=== PATIENT | male | born 1980 | race Caucasian/White ===

== ENCOUNTER 2018-11-28 00:50 | Emergency (ER) | payer MEDICAID ==
[~2018-11-28] VITALS: Ht 165.1 cm; Wt 71.2 kg
[2018-11-28 01:00] VITALS: Ht 165.1 cm; Wt 71.2 kg
--- NOTE | 2018-11-28 02:10 | ERD ---
ER Documentation Chief Complaint Chief Complaint upper abd pain x 4 hours HPI This is a 38-year-old male who presents here in the emergency department with complaints of right upper abdominal pain for about 4 hours. Vomited multiple times with nonbilious nonbloody emesis. His last bowel movement was today and was normal. Denies headache, head injury, loss of consciousness, dizziness, neck pain, neck stiffness, throat pain, difficulty swallowing, difficulty breathing lying flat, shoulder pain, chest pain, back pain, nausea, vomiting, constipation, diarrhea, urinary symptoms, loss of bowel and bladder control, trauma, injury, falls, difficulty walking due to pain, numbness or tingling sensation, calf pain, recent travel, recent major surgery in the last 3 weeks, calf pain, recent long travel, recent exposure to any illness, recent antibiotic use in the last 3 months, fever, chills, seizures. Past medical history: Surgical history: Right knee surgery. Social: Denies smoking, use of alcoholic beverages, use of illegal drugs. ROS All systems reviewed and are negative except as per history of present illness. Medications Home Meds Active Scripts Ibuprofen* (Motrin*) 800 Mg Tab, 800 MG PO Q6H PRN for PAIN AND OR ELEVATED TEMP, #30 TAB Prov:NIMISHA PEREZ F 11/28/18 Omeprazole* (Omeprazole*) 40 Mg Capsule.dr, 40 MG PO DAILY, #30 CAP Prov:PASILABANNIIMSHA F 11/28/18 Ondansetron Hcl* (Zofran*) 4 Mg Tablet, 4 MG PO Q8H PRN for NAUSEA AND/OR VOMITING, #30 TAB Prov:NIMISHA PEREZ F 11/28/18 Tramadol HCl (Tramadol HCl) 50 Mg Tablet, 50 MG PO Q4 PRN for SEVERE PAIN LEVEL 7-10, #5 TAB Prov:PASNIMISHA RODRIGUEZ F 11/28/18 Allergies Allergies: Uncoded Allergies: NKDA (Allergy, 04/14/11) PMhx/Soc History of Surgery: No Anesthesia Reaction: No Hx Neurological Disorder: No Hx Respiratory Disorders: No Hx Cardiac Disorders: No Hx Psychiatric Problems: No Hx Miscellaneous Medical Probl: No Hx Alcohol Use: No Hx Substance Use: No Hx Tobacco Use: No Smoking Status: Never smoker Physical Exam Vitals Physical Exam Const: No acute distress Head: Atraumatic Eyes: Normal Conjunctiva ENT: Normal External Ears, Nose and Mouth. Neck: Full range of motion. No meningismus. Resp: Clear to auscultation bilaterally Cardio: Regular rate and rhythm, no murmurs Abd: Soft, non tender, non distended. Normal bowel sounds. Has right upper abdominal tenderness to light and to palpation. Examined with female sand caster apprentice, RN. No vesicular lesions. Negative [place] sign (heel jar test). Negative psoas sign. Negative Rovsing sign. Negative psoas sign. No CVA tenderness. Able to jump twice without developing lower abdominal pain. Skin: No petechiae or rashes. Color appears normal for ethnicity. No skin tenting. No signs of severe dehydration. Back: No midline or flank tenderness Ext: No cyanosis, or edema Neur: Awake and alert. No neurological deficits. Psych: Normal Mood and Affect Results 24 hrs Laboratory Tests Test 11/28/18 02:31 11/28/18 03:27 White Blood Count 11.8 10^3/ul Red Blood Count 4.32 10^6/ul Hemoglobin 13.6 g/dl Hematocrit 40.9 % Mean Corpuscular Volume 94.7 fl Mean Corpuscular Hemoglobin 31.5 pg Mean Corpuscular Hemoglobin Concent 33.3 g/dl Red Cell Distribution Width 12.3 % Platelet Count 234 10^3/UL Mean Platelet Volume 10.2 fl Immature Granulocytes % 0.400 % Neutrophils % 88.0 % Lymphocytes % 6.1 % Monocytes % 5.1 % Eosinophils % 0.1 % Basophils % 0.3 % Nucleated Red Blood Cells % 0.0 /100WBC Immature Granulocytes # 0.050 10^3/ul Neutrophils # 10.4 10^3/ul Lymphocytes # 0.7 10^3/ul Monocytes # 0.6 10^3/ul Eosinophils # 0.0 10^3/ul Basophils # 0.0 10^3/ul Nucleated Red Blood Cells # 0.0 10^3/ul Sodium Level 141 mmol/L Potassium Level 3.8 mmol/L Chloride Level 104 mmol/L Carbon Dioxide Level 28 mmol/L Anion Gap 9 Blood Urea Nitrogen 15 mg/dl Creatinine 0.78 mg/dl Est Glomerular Filtrat Rate mL/min > 60 mL/min Glucose Level 143 mg/dl Calcium Level 9.4 mg/dl Total Bilirubin 0.3 mg/dl Direct Bilirubin 0.00 mg/dl Indirect Bilirubin 0.3 mg/dl Aspartate Amino Transf (AST/SGOT) 33 IU/L Alanine Aminotransferase (ALT/SGPT) 42 IU/L Alkaline Phosphatase 65 IU/L Total Protein 8.2 g/dl Albumin 4.8 g/dl Globulin 3.40 g/dl Albumin/Globulin Ratio 1.41 Amylase Level 78 U/L Lipase 135 U/L Urine Color YELLOW Urine Clarity CLOUDY Urine pH 7.0 Urine Specific [place] 1.016 Urine Ketones NEGATIVE mg/dL Urine Nitrite NEGATIVE mg/dL Urine Bilirubin NEGATIVE mg/dL Urine Urobilinogen NEGATIVE mg/dL Urine Leukocyte Esterase NEGATIVE Shaan/ul Urine Microscopic RBC 2 /HPF Urine Microscopic WBC 1 /HPF Urine Amorphous Crystals FEW /HPF Urine Mucus FEW /HPF Urine Hemoglobin NEGATIVE mg/dL Urine Glucose NEGATIVE mg/dL Urine Total Protein NEGATIVE mg/dl Current Medications Medications Dose Sig/[place] Start Time Status Last (Trade) Ordered Route PRN Stop Time Admin Dose Reason Admin Ondansetron 4 mg ONCE STAT 11/28/18 DC 11/28/18 HCl (Zofran IV 02:11 11/28/18 02:37 Inj) 02:15 Sodium 1,000 ml @ Q1H ONCE 11/28/18 DC 11/28/18 Chloride 1,000 mls/hr IV 02:30 11/28/18 02:37 03:29 Morphine 4 mg ONCE STAT 11/28/18 DC 11/28/18 Sulfate IV 02:11 11/28/18 02:37 (morphine) 02:15 1 mg ONCE STAT 11/28/18 DC 11/28/18 Hydromorphone IV 03:15 11/28/18 03:24 HCl 03:16 (Dilaudid) Procedures/MDM Diagnostic tests: Urinalysis: Reviewed. Blood works: Reviewed. Ultrasound of the gallbladder: Cholelithiasis with positive sonographic Nichole's sign. There is no gallbladder wall thickening or pericholecystic fluid. Fatty infiltration of the liver. Pancreas obscured by overlying bowel gas. Treatment: Saline lock. Normal saline IV bolus. Morphine IV. Zofran IV. Re-evaluation: Denies abdominal pain. Negative Nichole sign. Negative [place] sign (heel jar test). Negative psoas sign. Negative Rovsing sign. No CVA tenderness. Able to jump 10 times without developing lower abdominal pain. Stated that she feels much better at this time and that she is ready to go home. Also stated that she is comfortable to go home. Differential diagnosis I have low suspicion for acute cholecystitis, pancreatitis, diverticulitis, diverticulitis with abscess, bowel obstruction, appendicitis, ruptured appendicitis, obstructing kidney stones, kidney stones, pyelonephritis, septic stone, sepsis. Final diagnosis: Gallstones. Abdominal pain. Prescription: Zofran. Omeprazole. Pepcid. Follow-up with PCP in the next 24-48 hours. Come back here in the emergency department for any new symptoms or any worsening symptoms. All questions and concerns were answered. Patient and family members verbalized understanding and agreed with plan of care. Hemodynamically stable on discharge. Departure Diagnosis: Primary Impression: Gallstone Additional Impression: Abdominal pain Condition: Stable Additional Instructions: Follow-up with PCP in the next 24-48 hours. Come back here in the emergency department for any new symptoms or any worsening symptoms. NIMISHA PEREZ Nov 28, 2018 02:10
[2018-11-28] MEDS ORDERED: ONDANSETRON 4 MG INJ IV STA (02:11)
[2018-11-28] MEDS ORDERED: morphine 4 MG/ML VIAL IV STA (02:11)
[2018-11-28] MEDS ORDERED: SOD CHLORIDE 0.9% 1,000 ML IV ONE (02:30)
[2018-11-28] MEDS ORDERED: HYDROmorphONE 2 MG/ML SYG IV STA (03:15)
[2018-11-28] MEDS ORDERED: TRAM50TA2 PO (05:29)
[2018-11-28] MEDS ORDERED: OMEP40CA6 PO (05:30)
[2018-11-28] MEDS ORDERED: ONDA4TAB8 PO (05:30)
[2018-11-28] MEDS ORDERED: IBUP800T48 PO (05:30)
[2018-11-28 06:35] VITALS: BP 114/73; PULSE 18; RESP 18
== END 2018-11-28 06:35 | disposition home or self-care (01) ==
LOC: FTE 00:50
DX: K80.20 Calculus of gallbladder without cholecystitis without obstruction (principal)
CPT/HCPCS: 76705; 80053; 81001; 82150; 83690; 85025; 87086; 96361; 96374; 96375; J1170; J2270; J2405; J7030; Z7502

== ENCOUNTER 2019-02-15 23:41 | Emergency (ER) | payer MEDICAID ==
[~2019-02-15] VITALS: Ht 170.2 cm; Wt 68.9 kg
[~2019-02-15 23:41] MED LIST: IBUP800T48 PO; OMEP40CA6 PO; ONDA4TAB8 PO; TRAM50TA2 PO
[2019-02-15 23:58] VITALS: Ht 170.2 cm; Wt 68.9 kg
[2019-02-16] MEDS ORDERED: ONDANSETRON 4 MG INJ ONE (02:48)
[2019-02-16] MEDS ORDERED: FAMOTIDINE 20 MG INJ ONE (02:48)
[2019-02-16] MEDS ORDERED: LIDOCAINE/MYLANTA 40 ML BTL ONE (02:48)
[2019-02-16] MEDS ORDERED: KETOROLAC 30 MG INJ ONE (02:48)
[2019-02-16 04:51] VITALS: BP 127/81; PULSE 63; RESP 18
== END 2019-02-16 04:51 | disposition home or self-care (01) ==
LOC: FTE 23:41
DX: K80.20 Calculus of gallbladder without cholecystitis without obstruction (principal)
CPT/HCPCS: 80053; 81003; 83690; 85025; J1885; J2405; Z7502; Z7610; 99283